=== PATIENT | female | born 1985 | race African-American/Black ===

== ENCOUNTER 2018-04-05 12:10 | Emergency (ER) | payer OTHER ==
[~2018-04-05] VITALS: Ht 160 cm; Wt 49.9 kg
[~2018-04-05 12:10] MED LIST: AMBIEN 5 MG TABL5 MG; APAP500 PO; COLACE 100 MG100 MG PO; DEPO-PROVER150 MG/M1 IM; DERMOPLAST SPRA56 ML; FLEXERIL PO; IBUPROFEN 800800 M1 PO; INTEGRA; IRON325 PO; NORCO 5-325 TA1 EACH PO; PREDNISONE 20 M20 MG PO; TUCKS MEDICATE1 EAC1
[2018-04-05 13:27] LABS: URINE BILIRUBIN NEGATIVE (Negative); URINE BLOOD 3+ (Negative); URINE CLARITY CLEAR; URINE COLOR YELLOW; URINE GLUCOSE-RANDOM* NEGATIVE (Negative); URINE KETONES NEGATIVE (Negative); URINE LEUKOCYTES-REFLEX NEGATIVE (Negative); URINE NITRITE-REFLEX NEGATIVE (Negative); URINE PROTEIN (DIPSTICK) NEGATIVE (Negative); URINE SPECIFIC GRAVITY >= 1.030 (1.005-1.035); URINE UROBILINOGEN 0.2 E.U./dl (0.2-1.0)
[2018-04-05 13:36] LABS: CASTS None Seen /LPF (None Seen); CRYSTALS None Seen /LPF (None Seen); SQUAMOUS 4-10 Moderate /LPF (0-3); URINE RBC None Seen /HPF (0-2)
[2018-04-05 13:37] LABS: BACTERIA-REFLEX 1-9 Few /HPF (None Seen); URINE WBC-REFLEX None Seen /HPF (0-5)
[2018-04-06 14:12] LABS: NEISSERIA GONORRHEA-PCR Negative (Negative)
== END 2018-04-05 14:51 | disposition home or self-care (01) ==
LOC: ER 12:10
PROVIDERS: Physician Assistant
DX: N72 Inflammatory disease of cervix uteri (principal); F17.210 Nicotine dependence, cigarettes, uncomplicated; Z91.040 Latex allergy status

== ENCOUNTER 2018-11-04 10:26 | Emergency (ER) | payer OTHER ==
[~2018-11-04] VITALS: Ht 152.4 cm; Wt 51.3 kg
[2018-11-04] MEDS ORDERED: CIPRO500 MG PO (10:44)
[2018-11-04 11:21] LABS: HEMATOCRIT 45.8 % (37.0-47.0); HEMOGLOBIN 15.7 gm/dL (12.0-15.0); MCH 34.5 pg (26.0-34.0); MCHC 34.3 g/dL (28.0-37.0); MCV 100.5 fL (80.0-100.0); RBC 4.56 mil/uL (4.20-5.00); WBC 6.6 thou/uL (4.0-11.0)
[2018-11-04 11:32] LABS: CALCIUM 9.6 mg/dL (8.5-10.1); CREATININE 0.9 mg/dL (0.6-1.0)
[2018-11-04 11:38] LABS: ALBUMIN 4.3 g/dL (3.4-5.0); TOTAL BILIRUBIN 0.5 mg/dL (<0.1-1.0); TOTAL PROTEIN 9.1 g/dL (6.4-8.2)
[2018-11-04] MEDS ORDERED: TRAMADOL 50 MG50 MG PO (11:45)
[2018-11-04] MEDS ORDERED: NAPROSYN500 MG PO (11:45)
[2018-11-04 11:52] LABS: URINE BILIRUBIN NEGATIVE (Negative); URINE BLOOD NEGATIVE (Negative); URINE CLARITY CLEAR; URINE COLOR YELLOW; URINE GLUCOSE-RANDOM* NEGATIVE (Negative); URINE KETONES NEGATIVE (Negative); URINE LEUKOCYTES-REFLEX 2+ (Negative); URINE NITRITE-REFLEX NEGATIVE (Negative); URINE PROTEIN (DIPSTICK) NEGATIVE (Negative); URINE SPECIFIC GRAVITY <= 1.005 (1.005-1.035); URINE UROBILINOGEN 0.2 E.U./dl (0.2-1.0)
[2018-11-04 11:53] VITALS: BP 114/71
[2018-11-04 12:02] LABS: BACTERIA-REFLEX 1-9 Few /HPF (None Seen); CASTS None Seen /LPF (None Seen); CRYSTALS None Seen /LPF (None Seen); SQUAMOUS 4-10 Moderate /LPF (0-3); URINE RBC None Seen /HPF (0-2); URINE WBC-REFLEX 0-5 Rare /HPF (0-5)
== END 2018-11-04 12:49 | disposition home or self-care (01) ==
LOC: ER 10:26
PROVIDERS: Emergency Medicine
DX: R51 Headache (principal); T36.8X5A Adverse effect of other systemic antibiotics, initial encounter; Y92.9 Unspecified place or not applicable; N39.0 Urinary tract infection, site not specified; M79.10 Myalgia, unspecified site